=== PATIENT | female | born 1975 | race Hispanic/Latino ===

== ENCOUNTER 2017-08-21 13:51 | Emergency (ER) | payer SELFPAY ==
--- NOTE | 2017-08-21 15:04 | RAD ---
THREE VIEWS THORACIC SPINE: History: Pain. Comparison: None. FINDINGS: Vertebral body height is maintained. No fracture. Disc space heights are essentially preserved. Minim al osteophyte formation. IMPRESSION: Minimal degenerative change. POS: [facility]
[2017-08-21] MEDS ORDERED: Ketorolac Tromethamine 30 MG/ML VIAL ONE (17:12)
[2017-08-21] MEDS ORDERED: Cyclobenzaprine 10 MG TAB ONE (17:12)
== END 2017-08-21 17:36 | disposition home or self-care (01) ==
LOC: ERS 13:51
DX: D17.1 Benign lipomatous neoplasm of skin and subcutaneous tissue of trunk (principal)
CPT/HCPCS: 72072; 96372; J1885